=== PATIENT | male | born 2000 | race African-American/Black ===

== ENCOUNTER 2021-06-01 14:12 | Emergency (ER) | payer OTHER, SELFPAY ==
[2021-06-01] VITALS (21 sets, daily range): BP systolic 110–151; BP diastolic 71–99; PULSE 63–92; RESP 14–20; TEMP 36.6–36.7; O2SAT 98–100
--- NOTE | ~2021-06-01 | XR_ITS ---
EXAMINATION: XR chest 2V DATE: 06/01/2021 18:05 INDICATION: Weakness TECHNIQUE: PA and lateral views of the chest are obtained. COMPARISON: None available FINDINGS: The lungs are free of acute opacities. There is no pleural effusion or pneumothorax. The ca rdiomediastinal silhouette is normal. The visualized bones and soft tissues are unremarkable. IMPRESSION: 1. No acute cardiopulmonary abnormality. Reviewed, dictated and finalized at location F. RY CUTTER FEEDER
--- NOTE | ~2021-06-01 | CT_ITS ---
EXAMINATION: CT brain wo con INDICATION: Headache COMPARISON: None TECHNIQUE: Standard unenhanced head CT. The dose-length product (DLP) was 605.33 mGy-cm. The mA was a djusted according to patient size. Iterative reconstruction technique was employed. FINDINGS: There is no intracranial hemorrhage, acute infarction, or abnormal mass lesion. The ventric les are normal. There is no abnormal mass effect or midline shift. The winslow-white matter differentiat ion is normal. The basal cisterns are patent. The orbits are normal. The paranasal sinuses, mastoids and calvarium are normal. IMPRESSION: 1. No acute intracranial abnormality. Reviewed, dictated and finalized at location F. TRIC METER REPAIRER APPRENTICE
--- NOTE | 2021-06-01 17:37 | ECG_ITS ---
Measurements Intervals [place] Rate: 77 P: 39 OR: 155 QRS: 42 QRSD: 106 T: 8 QT: 349 QTc: 396 Interpretive Statements SINUS RHYTHM WITH SINUS ARRHYTHMIA BASELINE ARTIFACT- I, II, AVR NORMAL ECG Electronically Signed On 06-01-2021 21:14:39 PACKAGE DYER by Figueroa High D.O.
--- NOTE | 2021-06-01 17:50 | ED.GENADULT ---
HPI - General Adult General Chief complaint: Unspecified Stated complaint: L arm pain, resolved R eye blurred vision, nausea Time Seen by Provider: 06/01/21 17:23 Source: patient Mode of arrival: ambulatory Limitations: no limitations History of Present Illness HPI narrative: This is a 20 year old male who presents for evaluation of multiple symptoms. He states he woke up with left eye pain and left temporal throbbing this morning at 10 am. He also reports associated nausea and blurred right vision. He denies focal numbness, tingling, or weakness. He reports generalized weakness and body aches. He denies cough, chest pain or shortness of breath. He denies similar headache in the past. He reports his vision is back to normal and his headache has resolved. He did not take anything for his symptoms. Related Data Allergies Allergy/AdvReac Type Severity Reaction Status Date / Time No Known Allergies Allergy Unverified 08/23/18 18:38 Review of Systems Review of Systems: All systems reviewed & are unremarkable except as noted in HPI and below PMFSH Past Medical History Medical History (Updated 06/01/21 @ 19:24 by Yana Timmons MD) Patient denies medical problems Surgical History Surgical History (Updated 06/01/21 @ 18:35 by Yana Timmons MD) No pertinent past surgical history Social History Social History (Updated 06/01/21 @ 18:35 by Yana Timmons MD) Smoking status: Never smoker Alcohol intake: never Substance use: never Exam Narrative: GENERAL: Well-appearing, well-nourished, and in no acute distress. HEAD: Normocephalic, atraumatic EYES: PERRLA and EOMI, conjunctiva clear without discharge EARS: TM's clear bilaterally without erythema or dullness NOSE: Nares clear, no rhinorrhea or epistaxis THROAT:Mucous membranes moist, Oropharynx normal without erythema, exudate, peritonsillar swelling or fluctuance NECK: Supple, without lymphadenopathy or mass RESPIRATORY: No respiratory distress, Airway patent, Respirations non-labored, Clear to auscultation without rales, rhonchi or wheeze HEART: Regular rate and rhythm. No murmur heard. Normal peripheral pulses. ABDOMEN: Soft, nontender, nondistended, normal active bowel sounds. No masses. No rebound or guarding, No organomegaly. EXTREMITIES: No edema, normal strength with full range of motion. SKIN: Warm, dry, normal color without rash NEURO: Alert and oriented x3. CN 2-12 grossly intact. No focal deficits. PSYCH: Normal mood and affect. Eyes: Conjunctivae: conjunctivae normal Sclera: sclerae normal Pupils: Equal, round and reactive pupils present EOM: EOMs intact bilaterally Direct Ophthalmoscopy: normal light reflex and no papilledema Other: right eye intraocular pressure 14, left eye 17 Course Reevaluation(s) Reevaluation #1: PAtient's symptoms have resolved. He has not complaints. I have discussed evaluation with patient and his mother. This may have been migraine. He is also under investigation for covid. Date: 06/01/21 Time: 19:21 Vital Signs Vital signs: Vital Signs Temperature 97.8 F 06/01/21 14:32 Pulse Rate 63 06/01/21 14:32 Respiratory Rate 14 06/01/21 14:32 Blood Pressure 146/90 H 06/01/21 14:32 Pulse Oximetry 98 06/01/21 14:32 Temperature 98.1 F 06/01/21 17:08 Pulse Rate 92 06/01/21 19:46 Respiratory Rate 15 06/01/21 19:46 Blood Pressure 135/83 06/01/21 19:46 Pulse Oximetry 99 06/01/21 19:46 Medical Decision Making Vital Signs Vital Signs: Vital Signs Temperature 97.8 F 06/01/21 14:32 Pulse Rate 63 06/01/21 14:32 Respiratory Rate 14 06/01/21 14:32 Blood Pressure 146/90 H 06/01/21 14:32 Pulse Oximetry 98 06/01/21 14:32 Temperature 98.1 F 06/01/21 17:08 Pulse Rate 92 06/01/21 19:46 Respiratory Rate 15 06/01/21 19:46 Blood Pressure 135/83 06/01/21 19:46 Pulse Oximetry 99 06/01/21 19:46 Lab Data Lab results reviewed
[2021-06-01 18:00] LABS: Basophils Absolute Auto 0.1 K/mm3 (0.0-0.1); Basophils Percent Auto 0.5 % (0.2-1.2); Eosinophils Percent Auto 0.1 % (0-4.4); Hematocrit 44.5 % (42.0-52.0); Hemoglobin 15.4 g/dL (14.0-18.0); Immature Granulocyte Absolute 0.05 K/mm3 (0.00-0.031); Immature Granulocyte Percent A 0.3 % (0-0.5); Lymphocytes Absolute Auto 0.96 K/mm3 (0.9-3.2); Lymphocytes Percent Auto 6.5 % (18.3-44.2); Mean Corpuscular HGB Conc 34.6 g/dl (32-36); Mean Corpuscular Hemoglobin 29.2 pg (26-34); Mean Corpuscular Volume 84.3 fl (80-100); Mean Platelet Volume 10.4 fl (7.4-10.4); Monocytes Absolute Auto 0.3 K/mm3 (0.1-0.6); Monocytes Percent Auto 2.2 % (2.6-8.5); Neutrophils Absolute Auto 13.3 K/mm3 (1.3-6.7); Neutrophils Percent Auto 90.4 % (45.5-73.1); Platelet Count Result 250 k/mm3 (150-375); Red Blood Count 5.28 M/mm3 (4.6-6.20); Red Cell Distribution Width 12.7 % (11.5-14.5); White Blood Count 14.7 K/mm3 (4.5-10.0)
[2021-06-01 18:11] LABS: INR 1.1; Prothrombin Time 13.7 Seconds (11.1-14.7)
[2021-06-01 18:15] LABS: Alanine Aminotransferase 22 U/L (4-50); Albumin Level 4.7 g/dL (3.5-5.1); Alkaline Phosphatase 76 U/L (38-126); Anion Gap 7 mmol/L (8-16); Aspartate Amino Transferase 30 U/L (17-59); Bilirubin,Total 0.9 mg/dL (0.2-1.3); Blood Urea Nitrogen 12 mg/dL (9-20); Calcium 9.6 mg/dL (8.4-10.2); Carbon Dioxide 25 mmol/L (22-30); Chloride 104 mmol/L (98-107); Estimated CRCL calculation 136 ml/min; Estimated Glomerular Filt Rate > 60; Glucose 101 mg/dL (65-110); Potassium 4.4 mmol/L (3.4-5.0); Sodium 136 mmol/L (137-145)
[2021-06-01] MEDS: ONDANSETRON INJ 4 MG/2 ML VIAL IV PUSH (18:28)
[2021-06-01] MEDS: SODIUM CHLORIDE 0.9% IV 1,000 ML 999 ML IV CONT (18:29)
[2021-06-01 18:42] LABS: Add Urine Microscopic? NO; Appearance Urine Clear (Clear); Bilirubin Urine Negative (Negative); Blood Urine Negative (Negative); Color Urine Yellow (Yellow); Glucose Urine UA Negative (Negative); Ketones Urine Negative (Negative); Leukocyte Esterase Ur Negative LEU/UL (Negative); Nitrate Urine Negative (Negative); Protein Urine Negative (Negative); Specific Grav Ur 1.014 (1.001-1.035); Urobilinogen Urine Negative mg/dL (<2.0)
[2021-06-01 18:49] LABS: Amphetamine Screen Urine Negative (Negative); Barbiturate Screen Urine Negative (Negative); Benzodiazepines Screen Urine Negative (Negative); Cannabinoid Screen Urine Negative (Negative); Cocaine Screen Urine Negative (Negative); Methadone Screen Urine Negative (Negative); Opiate Screen Urine Negative (Negative); Phencyclidine Screen Urine Negative (Negative)
[2021-06-01 19:49] LABS: SARS-CoV-2 RNA PCR Negative
== END 2021-06-01 19:54 | disposition home or self-care (01) ==
PROVIDERS: Emergency Provider General Practice; PCP Family Medicine
DX: R51.9 Headache, unspecified (principal); Z20.822 Contact with and (suspected) exposure to COVID-19
CPT/HCPCS: 36415; 70450; 71046; 80053; 80307; 81003; 85025; 85610; 85730; 93005; 96361; 96374; 99284; C9803; J2405; J7030; U0003; U0005

== ENCOUNTER 2022-09-27 21:26 | Emergency (ER) | payer OTHER, SELFPAY ==
--- NOTE | ~2022-09-27 | XR_ITS ---
EXAM: XR ankle RT min 3V DATE: 09/27/2022 21:47 HISTORY: injury, pain, swelling to lat ankle . COMPARISON: 08/23/2018. FINDINGS: Normal mineralization. No fracture or dislocation. No lytic or blastic lesion. Joint space s are maintained. Prominent os trigonum. No erosion or periosteal change. Soft tissues within normal limits. IMPRESSION: No acute osseous finding in the right ankle. Reviewed, dictated and finalized at location K.
[2022-09-27 21:29] VITALS: BP 138/78; PULSE 94; RESP 18; TEMP 36.7; O2SAT 98
--- NOTE | 2022-09-27 22:42 | ED.GENADULT ---
HPI - General Adult General Chief complaint: Extremity Injury, Lower Stated complaint: Right ankle injury History of Present Illness HPI narrative: 21-year-old male presented to the emergency department for evaluation of right ankle pain. Patient was playing basketball this evening when he landed and rolled his right ankle. Patient denies any other pain or injury. Patient does report pain of the right lateral ankle with weightbearing Related Data Allergies Allergy/AdvReac Type Severity Reaction Status Date / Time No Known Allergies Allergy Unverified 08/23/18 18:38 Review of Systems Review of Systems: All systems reviewed & are unremarkable except as noted in HPI and below PMFSH Past Medical History Medical History (Updated 09/28/22 @ 00:01 by Ravi Baez) Patient denies medical problems Surgical History Surgical History (Updated 06/01/21 @ 18:35 by Yana Timmons MD) No pertinent past surgical history Social History Social History (Updated 06/01/21 @ 18:35 by Yana Timmons MD) Smoking status: Never smoker Alcohol intake: never Substance use: never Exam Narrative: APPEARANCE: Well appearing, no pain, no distress, well-nourished. HEAD: normocephalic, atraumatic. EYES: PERRLA/EOMI, conjunctivae clear. NOSE: Normal no drainage NECK: Supple. No adenopathy, no masses. RESPIRATORY: Airway patent, respirations nonlabored. Clear to auscultation bilaterally, no rales, rhonchi, wheezing. CARDIOVASCULAR: Regular rate and rhythm without murmurs rubs or gallops. ABDOMINAL: Soft, nontender, nondistended, normal bowel sounds MUSCULOSKELETAL: No tenderness to proximal tib-fib right leg, tenderness and swelling to lateral malleolus, dorsalis pedis pulses intact and no tenderness of right foot. NEURO: Alert. Cranial nerves II through XII intact. Grossly intact SKIN: Warm, dry. Normal Color Course Course Emergency Course: 21-year-old male presented the ED for evaluation of right ankle pain. X-rays were negative for acute fracture dislocation. Clinically patient appears to have a sprained ankle. Patient was provided Fred wrap and crutches. Patient evaluated the results of the work-up including the x-ray. All question concerns were addressed. Vital Signs Vital signs: Vital Signs Temperature 98.0 F 09/27/22 21:29 Pulse Rate 94 09/27/22 21:29 Respiratory Rate 18 09/27/22 21:29 Blood Pressure 138/78 09/27/22 21:29 Pulse Oximetry 98 09/27/22 21:29 Oxygen Delivery Room Air 09/27/22 21:29 Temperature 98.0 F 09/27/22 21:29 Pulse Rate 94 09/27/22 21:29 Respiratory Rate 18 09/27/22 21:29 Blood Pressure 138/78 09/27/22 21:29 Pulse Oximetry 98 09/27/22 21:29 Oxygen Delivery Room Air 09/27/22 21:29 Medical Decision Making Differential Diagnosis Differential Diagnosis: Ankle fracture, ankle sprain, ankle contusion Vital Signs Vital Signs: Vital Signs Temperature 98.0 F 09/27/22 21:29 Pulse Rate 94 09/27/22 21:29 Respiratory Rate 18 09/27/22 21:29 Blood Pressure 138/78 09/27/22 21:29 Pulse Oximetry 98 09/27/22 21:29 Oxygen Delivery Room Air 09/27/22 21:29 Temperature 98.0 F 09/27/22 21:29 Pulse Rate 94 09/27/22 21:29 Respiratory Rate 18 09/27/22 21:29 Blood Pressure 138/78 09/27/22 21:29 Pulse Oximetry 98 09/27/22 21:29 Oxygen Delivery Room Air 09/27/22 21:29 Discharge Plan Discharge Clinical Impression: Ankle injury Patient Disposition: Home, Self-Care Condition: Stable Instructions: Antibiotic Form, Ankle Sprain (ED), Crutch Instructions (ED), Ice Pack Application (ED) Additional Instructions: Fred wrap for support, crutches for limited weightbearing for the next 3 days. Naproxen scheduled for the next few days. Have close follow-up with your primary care physician. If you have any worsening symptoms then please call or return to the emergency room. Prescriptions: New
[2022-09-27] MEDS: NAPROXEN 500 MG TABLET PO (22:50)
[2022-09-27] MEDS: CYCLOBENZAPRINE HCL 10 MG TABLET PO (22:50)
== END 2022-09-27 23:00 | disposition home or self-care (01) ==
PROVIDERS: Emergency Provider Emergency Medicine
DX: S99.911A Unspecified injury of right ankle, initial encounter (principal); X50.9XXA Other and unspecified overexertion or strenuous movements or postures, initial encounter; Y93.67 Activity, basketball
CPT/HCPCS: 73610; 99283; A9270

== ENCOUNTER 2023-07-12 16:22 | Emergency (ER) | payer OTHER, SELFPAY ==
[2023-07-12 16:34] VITALS: BP 133/85; PULSE 66; RESP 16; TEMP 37; O2SAT 100
--- NOTE | 2023-07-12 16:39 | ED.WOUNDLAC ---
HPI - Wound/Laceration General Chief Complaint: Wound/Laceration Stated Complaint: lac Time Seen by Provider: 07/12/23 16:39 Source: patient Mode of arrival: ambulatory Limitations: no limitations History of Present Illness HPI narrative: Manish is a 22-year-old male patient presenting to the clinic today with complaints of a left hand laceration. He reports he was trying to open up a can and was using a fork when the can cut his left palm. His tetanus shot is not up-to-date. Bleeding is controlled. Related Data Allergies Allergy/AdvReac Type Severity Reaction Status Date / Time No Known Allergies Allergy Verified 07/12/23 16:37 Review of Systems Review of Systems: Pertinent positives per HPI. Patient denies any fever, chills, rash, headache, visual changes, dizziness, cough, runny nose, sore throat, shortness of breath, chest pain, palpitations, nausea, vomiting, diarrhea, constipation, abdominal pain, or any urinary issues. PMFSH Past Medical History Medical History Patient denies medical problems Surgical History Surgical History No pertinent past surgical history Social History Social History Smoking status: Never smoker Alcohol intake: never Substance use: never Comments At the time of my signature, I reviewed and agree with the nursing past medical, surgical, social, and family history. There is no relevant family history pertinent to the patient complaint. Exam Narrative: General: Well-developed, well nourished, in no apparent distress Head: Normocephalic, atraumatic. Cardio: Regular rate and rhythm, s1 and s2 normal, no murmur appreciated. Resp: Clear to auscultation bilaterally, no rhonchi, rales, wheezing or rubs. Integumentary: [place], warm, and dry, 1.5 cm gaped laceration to the left palm/webbing in between the thumb and index finger Course Course Emergency Course: Portions of this record may have been created with voice recognition software. Vital Signs Vital signs: Vital Signs Temperature 37.0 C 07/12/23 16:34 Pulse Rate 66 07/12/23 16:34 Respiratory Rate 16 07/12/23 16:34 Blood Pressure 133/85 07/12/23 16:34 Pulse Oximetry 100 07/12/23 16:34 Oxygen Delivery Room Air 07/12/23 16:34 Temperature 37.0 C 07/12/23 16:34 Pulse Rate 66 07/12/23 16:34 Respiratory Rate 16 07/12/23 16:34 Blood Pressure 133/85 07/12/23 16:34 Pulse Oximetry 100 07/12/23 16:34 Oxygen Delivery Room Air 07/12/23 16:34 Vital signs reviewed Procedures Laceration Laceration 1: Date: 07/12/23 Site: hand Size (cm): 1.5 Description: linear Depth: simple, single layer Local Anesthetic: lidocaine 1% and with epi Amount of anesthesia used (mL): 2 Pre-repair: wound explored, irrigated and irrigated extensively ====== Skin Level ====== Skin layer closed with: nylon Size (cm): 4-0 Number of sutures: 5 Technique: simple, interrupted ====== Subcutaneous Layer ====== ====== Muscle Layer ====== ====== Tendon Layer ====== Dressing: Verbal consent obtained for laceration repair. Risk and benefits explained and patient voiced understanding. Area was cleansed with ChloraPrep and a 25 gauge needle was then used to instill (2) ml of 1% lidocaine with epi into the wound edges. Area was prepped and draped using sterile technique. A 4-0 suture on a p needle was used to place (5) interrupted sutures bringing the wound edges together- well approximated. Patient tolerated procedure well. Sterile dressing applied. MDM - Wound/Laceration MDM Narrative Medical decision making narrative: At the time of visit patient is resting comfortably on the exam table. Patient appears to be nontoxic.
[2023-07-12] MEDS: TETANUS,DIPHTHERIA,AC PERTUSSIS ADULT (0.5 ML) BOOSTRIX IM (17:17)
[2023-07-12] MEDS: LIDO 1%/EPINEPHRINE 1:100,000 20 ML VIAL 10 ML INFILTRATE (17:18)
== END 2023-07-12 17:23 | disposition home or self-care (01) ==
LOC: ANHED 17:10
PROVIDERS: Emergency Provider Nurse Practitioner Family; PCP Family Medicine Sports Medicine
DX: S61.412A Laceration without foreign body of left hand, initial encounter (principal); W26.8XXA Contact with other sharp object(s), not elsewhere classified, initial encounter; Z23 Encounter for immunization
CPT/HCPCS: 12001; 90471; 90715; 99282

== ENCOUNTER 2024-07-02 10:04 | Emergency (ER) | payer OTHER, SELFPAY ==
[2024-07-02 10:13] VITALS: BP 136/63; PULSE 63; RESP 15; TEMP 36.4; O2SAT 100
--- OUTSIDE RECORDS SUMMARY | 2024-07-02 11:30 | XMS_ITS | Clinical Summary ---
Author Organization [facility] Address [address] [place] [address] Phone Care Team Providers Care Vp Delivery Name Role Phone Liya Salinas MD Primary Care Provider No, Physician Unavailable Allergies No known active allergies Medications citalopram hydrobromide (CITALOPRAM ORAL) Take 20 mg by mouth daily Active albuterol HFA (PROVENTIL HFA,VENTOLIN HFA,PROAIR HFA) 90 mcg/actuation inhalerIndicatio ns:Exercise-beth michelle asthma Inhale 2 puffs every 6 (six) hours as needed for wheezing or shortness of breath 1 each 4 3 Active Additional Information Patient not taking.Reported on 09/28/2023 minoxidiL 5 % solution Apply topically Acti ve Active Problems Problem Noted Date Diagnosed Date Bipolar disorder, current episode mixed, moderat e 04/19/2022 JETT (generalized anxiety disorder) 04/19/2022 PTSD (post-traumatic stress disorder) 04/19/2022 Encounters Date Type Department Care Team Description 04/08/2024 4:45 PM FOAM RUBBER FABRICATOR Office Visit [facility] at [address] [id number] Feli Hyatt PA Influenza A (Primary Dx); Non-recurrent acute suppurative otitis media of both ears without spontaneous rupture of tympanic membranes from Last 3 Months Immunizations Immunization Administration Dates Next Due DTaP 11/26/2004, 2,11/28/2000,04/28/2000,0 1999 Hep B, Adolescent or Pediatric 03/13/2001,2000 HiB 11/22/2001,04/28/2000,1999 IPV 11/26/2004,11/28/2000,04/28/2000 ,1999 Influenza, Unspecified 01/09/2023(Deferred: Jessie ent Refused) MMR 11/26/2004,03/13/2001 Meningococcal MCV4P (Menactra) 06/20/2017 Tdap 07/12/2023,06/20/2017 Varicella 11/26/2002 Surgical History Surgery Date Site/Laterality Comments NO PAST SURGERIES Medical History Medical History Date Comments Major depression Adhd JETT (generalized anxiety disorder) Manic depression (HCC) Family History Medical History Relation Name Comments Schizophrenia Father's Brother 1 Bipolar disorder Father's Brother 2 Anxiety disorder Mother Depression Mother Diabetes Mother Hyperlipidemia Mother Relation Name Status Comments Father's Brother 1 Alive Father's Brother 2 Alive Mother Social History Tobacco Use Types Packs/Day Years Used Date Smoking Tobacco: Never Smokeless Tobacco: Never Tobacco Cessation:Counseling Given: Not Answered PHQ-2 Answer Date Recorded PHQ-2 Total Score (If total score is 3 or more points, staff should administer the PHQ-9) 3 09/12/2023 PHQ-9 Answer Date Recorded PHQ-9 Total Score 13 09/12/2023 Sex and Gender Information Value Date Recorded Sex Assigned at Not on file Legal Sex Male 8:26 AM CDT Gender Identity Not on file Sexual Orientation Not on file Obstetrics History Last Filed Vital Signs Vital Sign Reading Time Taken Comments Blood Pressure 114/76 04/08/2024 4:43 PM FOAM RUBBER FABRICATOR Pulse 78 04/08/2024 4:43 PM FOAM RUBBER FABRICATOR Temperature 37.5 C (99.5 F) 04/08/2024 4:43 PM FOAM RUBBER FABRICATOR Respiratory Rate 20 04/08/2024 4:43 PM FOAM RUBBER FABRICATOR Oxygen Saturation 98% 04/08/2024 4:43 PM FOAM RUBBER FABRICATOR Inhaled Oxygen Concentration - - Weight 93.4 kg (206 lb) 04/08/2024 4:43 PM FOAM RUBBER FABRICATOR Height 175.3 cm (5' 9 ) 09/28/2023 3:16 PM CDT Body Mass Index 30.42 09/28/2023 3:16 PM CDT Plan of Treatment Health Maintenance Due Date Last Done Comments Hepatitis C Screening 1999 Varicella Vaccines (2 of 2 - 2-dose childhood series) 2003 11/26/2002 HPV Vaccines (1 - Male 3-dose series) 10/06/2014 Influenza Vaccine (#1) 2023 Depression Screening 09/11/2024 09/12/2023, 02/04/2023, 02/04/2023, Additional history exists Regular Well Visit/Exam 18-64 09/11/2024 09/12/2023 DTaP/Tdap/Td Vaccine (8 - Td or Tdap) 07/11/2033 07/12/2023, 06/20/2017, 11/26/2004, Additional history exists Hepatitis B Screening Completed 03/13/2001, 001 Pneumococcal vaccine <65 Aged Out No longer eligible based on patient's age to complete this topic Procedures Procedure Name Priority Date/Time Associated Diagnosis Comments POCT RAPID STREP Routine 04/08/2024 4:51 PM FOAM RUBBER FABRICATOR Influenza A POC INFLUENZA A/B, COVID-19 ANTIGEN Routine 04/08/2024 4:51 PM FOAM RUBBER FABRICATOR Influenza A from Last 3 Months Results * (ABNORMAL) POC Influenza A/B, COVID-19 antigen (04/08/2024 4:51 PM FOAM RUBBER FABRICATOR) Influenza A Ag, POC Positive(A) Negative [facility] Influenza B Ag, POC Negative Negative [facility] COVID-19 Ag POC Presumptive Negative Presumptive Negative, Invalid [facility] Nasal 04/08/2024 4:51 PM FOAM RUBBER FABRICATOR us Feli STANTON POINT OF CARE TEST ORDER DISHA Final Result [facility] [address] [place], [place] [id number] * POCT rapid strep A (04/08/2024 4:51 PM FOAM RUBBER FABRICATOR) Rapid Strep A, POC Negative Negative Swab 04/08/2024 4:51 PM FOAM RUBBER FABRICATOR Feli STANT[place] POINT OF CARE TEST ORDER DISHA Final Result from Last 3 Months Insurance [facility] Care Teams Vp Delivery Relationship Specialty Start Date End Date Liya Salinas MD PCP - General Family Practice 04/19/22 No, Physician 03/15/22
--- OUTSIDE RECORDS SUMMARY | 2024-07-02 11:30 | XMS_ITS | Referral Summary ---
Author Organization [facility] Address [address] [address] Phone Care Team Providers Care Lumber Bearer Name Role Phone Liya Salinas MD Primary Care Provider No, Physician Unavailable Encounters Date Type Department Care Team Description 04/08/2024 4:45 PM SIGNALS INTELLIGENCE ANALYSIS MANAGER Office Visit [facility] at [address] [phone] Feli Hyatt PA Influenza A (Primary Dx); Non-recurrent acute suppurative otitis media of both ears without spontaneous rupture of tympanic membranes from Last 3 Months Allergies No known active allergies Medications citalopram hydrobromide (CITALOPRAM ORAL) Take 20 mg by mouth daily Active albuterol HFA (PROVENTIL HFA,VENTOLIN HFA,PROAIR HFA) 90 mcg/actuation inhalerIndicatio ns:Exercise-beth michelle asthma Inhale 2 puffs every 6 (six) hours as needed for wheezing or shortness of breath 1 each 4 Active Additional Information Patient not taking.Reported on 09/28/2023 minoxidiL 5 % solution Apply topically Acti ve Active Problems Problem Noted Date Diagnosed Date Bipolar disorder, current episode mixed, moderat e 04/19/2022 JETT (generalized anxiety disorder) 04/19/2022 PTSD (post-traumatic stress disorder) 04/19/2022 Immunizations Immunization Administration Dates Next Due DTaP 11/26/2004, 2,11/28/2000,04/28/2000,0 1999 Hep B, Adolescent or Pediatric 03/13/2001,2000 HiB 11/22/2001,04/28/2000,1999 IPV 11/26/2004,11/28/2000,04/28/2000 ,1999 Influenza, Unspecified 01/09/2023(Deferred: Jessie ent Refused) MMR 11/26/2004,03/13/2001 Meningococcal MCV4P (Menactra) 06/20/2017 Tdap 07/12/2023,06/20/2017 Varicella 11/26/2002 Social History Tobacco Use Types Packs/Day Years [...] on file Sexual Orientation Not on file Last Filed Vital Signs Vital Sign Reading Time Taken Comments Blood Pressure 114/76 04/08/2024 4:43 PM SIGNALS INTELLIGENCE ANALYSIS MANAGER Pulse 78 04/08/2024 4:43 PM SIGNALS INTELLIGENCE ANALYSIS MANAGER Temperature 37.5 C (99.5 F) 04/08/2024 4:43 PM SIGNALS INTELLIGENCE ANALYSIS MANAGER Respiratory Rate 20 04/08/2024 4:43 PM SIGNALS INTELLIGENCE ANALYSIS MANAGER Oxygen Saturation 98% 04/08/2024 4:43 PM SIGNALS INTELLIGENCE ANALYSIS MANAGER Inhaled Oxygen Concentration - - Weight 93.4 kg (206 lb) 04/08/2024 4:43 PM SIGNALS INTELLIGENCE ANALYSIS MANAGER Height 175.3 cm (5' 9 ) 09/28/2023 3:16 PM CDT Body Mass Index 30.42 09/28/2023 3:16 PM CDT Plan of Treatment Not on file Procedures Procedure Name Priority Date/Time Associated Diagnosis Comments POCT RAPID STREP Routine 04/08/2024 4:51 PM SIGNALS INTELLIGENCE ANALYSIS MANAGER Influenza A POC INFLUENZA A/B, COVID-19 ANTIGEN Routine 04/08/2024 4:51 PM SIGNALS INTELLIGENCE ANALYSIS MANAGER Influenza A from Last 3 Months Results * (ABNORMAL) POC Influenza A/B, COVID-19 antigen (04/08/2024 4:51 PM SIGNALS INTELLIGENCE ANALYSIS MANAGER) Influenza A Ag, POC Positive(A) Negative [facility] Influenza B Ag, POC Negative Negative [facility] COVID-19 Ag POC Presumptive Negative Presumptive Negative, Invalid [facility] Nasal 04/08/2024 4:51 PM SIGNALS INTELLIGENCE ANALYSIS MANAGER Feli STANTON POINT OF CARE TEST ORDER DISHA Final Result Performing Organization Address City/State/[facility] Co de Phone Number [facility] [address] [place] [address] * POCT rapid strep A (04/08/2024 4:51 PM SIGNALS INTELLIGENCE ANALYSIS MANAGER) Rapid Strep A, POC Negative Negative Swab 04/08/2024 4:51 PM SIGNALS INTELLIGENCE ANALYSIS MANAGER Feli STANT[place] POINT OF CARE TEST ORDER DISHA Final Result from Last 3 Months Insurance [facility] Care Teams Lumber Bearer Relationship Specialty Start Date End Date Liya Salinas MD PCP - General Family Practice 04/19/22 No, Physician 03/15/22
--- NOTE | 2024-07-02 13:03 | ED_ITS ---
HPI - General Adult General Chief complaint: Back Pain/Injury Stated complaint: back pain after stretching Time Seen by Provider: 07/02/24 12:02 History of Present Illness HPI narrative: 23-year-old male presenting to the emergency department for evaluation for mid back pain. Patient states he was riding his car when he was doing some twisting stretching than some left lateral stretching when he felt a pop in his back. Patient states that he is having right paraspinal back pain in the midthoracic region. Patient denies any associated numbness or weakness. Patient denies any traumatic injury. Patient denies any change in bowel or bladder habits. Patient states he does do heavy lifting for his work and does also do martial arts sewed does report increased possibility of having an injury but denies any specific injury. Related Data Allergies Allergy/AdvReac Type Severity Reaction Status Date / Time No Known Allergies Allergy Verified 07/02/24 10:13 Review of Systems Review of Systems: All systems reviewed & are unremarkable except as noted in HPI and below PMFSH Past Medical History Medical History Patient denies medical problems Surgical History Surgical History No pertinent past surgical history Social History Social History Smoking status: Never smoker Alcohol intake: never Substance use: never Exam Narrative: APPEARANCE: Well appearing, no pain, no distress, well-nourished. HEAD: normocephalic, atraumatic. EYES: PERRLA/EOMI, conjunctivae clear. NOSE: Normal no drainage EARS:TMS clear with good light reflex. THROAT: Pharynx clear, no exudate. NECK: Supple. No adenopathy, no masses. RESPIRATORY: Airway patent, respirations nonlabored. Clear to auscultation bilaterally, no rales, rhonchi, wheezing. CARDIOVASCULAR: Regular rate and rhythm without murmurs rubs or gallops. ABDOMINAL: Soft, nontender, nondistended, normal bowel sounds MUSCULOSKELETAL: Tenderness of the right paraspinal muscles and the midthoracic region. NEURO: Alert. Cranial nerves II through XII intact. Good gait. Good coordination SKIN: Warm, dry. Normal Color Course Vital Signs Vital signs: Vital Signs Temperature 97.5 F L 07/02/24 10:13 Pulse Rate 63 07/02/24 10:13 Respiratory Rate 15 07/02/24 10:13 Blood Pressure 136/63 07/02/24 10:13 Pulse Oximetry 100 07/02/24 10:13 Oxygen Delivery Room Air 07/02/24 10:13 Temperature 97.5 F L 07/02/24 10:13 Pulse Rate 63 07/02/24 10:13 Respiratory Rate 15 07/02/24 10:13 Blood Pressure 136/63 07/02/24 10:13 Pulse Oximetry 100 07/02/24 10:13 Oxygen Delivery Room Air 07/02/24 10:13 Medical Decision Making MDM Narrative Medical decision making narrative: 23 old male presents emergency department for evaluation for right paraspinal back pain. Patient was provided Toradol and cyclobenzaprine for pain control. Patient was offered x-rays due to feeling a traumatic pop in his back. Patient initially agreed to have the x-ray but ultimately declined. Patient was discharged home with medications for pain control. Patient was encouraged close follow-up with primary care physician. Differential Diagnosis Differential Diagnosis: Paraspinal muscular back spasm. Thoracic spine fracture Vital Signs Vital Signs: Vital Signs Temperature 97.5 F L 07/02/24 10:13 Pulse Rate 63 07/02/24 10:13 Respiratory Rate 15 07/02/24 10:13 Blood Pressure 136/63 07/02/24 10:13 Pulse Oximetry 100 07/02/24 10:13 Oxygen Delivery Room Air 07/02/24 10:13 Temperature 97.5 F L 07/02/24 10:13 Pulse Rate 63 07/02/24 10:13 Respiratory Rate 15 07/02/24 10:13 Blood Pressure 136/63 07/02/24 10:13 Pulse Oximetry 100 07/02/24 10:13 Oxygen Delivery Room Air 07/02/24 10:13 Discharge Plan Discharge Clinical Impression: Strain of thoracic back region Patient Disposition: Home, Self-Care Condition: Stable Instructions: Antibiotic Form, Thoracic Back Strain (ED) Additional Instructions: You declined imaging. Tylenol and ibuprofen for pain control. Cyclobenzaprine for muscle spasm. Gentle stretching as directed. If you have any worsening symptoms then please call or return to the emergency department. Patient Language: Portuguese Prescriptions: New cyclobenzaprine 10 mg tablet 10 mg PO BID PRN (Reason: muscle spasm) Qty: 14 0RF No Action ondansetron 4 mg tablet,disintegrating 4 mg PO Q6H PRN (Reason: nausea and vomiting) Qty: 10 0RF cyclobenzaprine 10 mg tablet 10 mg PO BID PRN (Reason: muscle spasm) Qty: 14 0RF Follow-up/Referrals: UNKNOWN,DOCTOR [Primary Care Provider] -
[2024-07-02] MEDS: CYCLOBENZAPRINE HCL 10 MG TABLET PO (13:18)
[2024-07-02] MEDS: KETOROLAC (*BKC) 60 MG/2 ML VIAL IM (13:20)
--- OUTSIDE RECORDS SUMMARY | 2024-07-02 14:03 | XMS_ITS | Clinical Summary ---
Author Organization [facility] Address [address] [place] [address] Phone Care Team Providers Care Dock Operations Supervisor Name Role Phone Liya Salinas MD Primary [...] Department Care Team Description 04/08/2024 4:45 PM FRONT DESK AGENT Office Visit [facility] at [address] [id number] Feli Hyatt PA Influenza A [...] Comments Blood Pressure 114/76 04/08/2024 4:43 PM FRONT DESK AGENT Pulse 78 04/08/2024 4:43 PM FRONT DESK AGENT Temperature 37.5 C (99.5 F) 04/08/2024 4:43 PM FRONT DESK AGENT Respiratory Rate 20 04/08/2024 4:43 PM FRONT DESK AGENT Oxygen Saturation 98% 04/08/2024 4:43 PM FRONT DESK AGENT Inhaled Oxygen Concentration - - Weight 93.4 kg (206 lb) 04/08/2024 4:43 PM FRONT DESK AGENT Height 175.3 cm (5' 9 ) 09/28/2023 [...] POCT RAPID STREP Routine 04/08/2024 4:51 PM FRONT DESK AGENT Influenza A POC INFLUENZA A/B, COVID-19 ANTIGEN Routine 04/08/2024 4:51 PM FRONT DESK AGENT Influenza A from Last 3 Months Results * (ABNORMAL) POC Influenza A/B, COVID-19 antigen (04/08/2024 4:51 PM FRONT DESK AGENT) Influenza A Ag, POC Positive(A) Negative [facility] Influenza B Ag, POC Negative Negative [facility] COVID-19 Ag POC Presumptive Negative Presumptive Negative, Invalid [facility] Nasal 04/08/2024 4:51 PM FRONT DESK AGENT us Feli STANT[facility] POINT OF CARE TEST ORDER DISHA Final Result [facility] [address] [place], [place] [address] * POCT rapid strep A (04/08/2024 4:51 PM FRONT DESK AGENT) Rapid Strep A, POC Negative Negative Swab 04/08/2024 4:51 PM FRONT DESK AGENT Feli [place]ANT[place] POINT OF CARE TEST ORDER DISHA Final Result from Last 3 Months Insurance [facility] Care Teams Dock Operations Supervisor Relationship Specialty Start Date End Date Liya Salinas MD PCP - General Family Practice 04/19/22 No, Physician 03/15/22
--- OUTSIDE RECORDS SUMMARY | 2024-07-02 14:03 | XMS_ITS | Referral Summary ---
Author Organization [facility] Address [address] [address] Phone Care Team Providers Care Leaf Sorter Name Role Phone Liya Salinas MD Primary Care Provider No, Physician Unavailable Encounters Date Type Department Care Team Description 04/08/2024 4:45 PM SENIOR ORACLE DBA Office Visit [facility] at [address] [id number] Feli Hyatt PA Influenza A [...] Comments Blood Pressure 114/76 04/08/2024 4:43 PM SENIOR ORACLE DBA Pulse 78 04/08/2024 4:43 PM SENIOR ORACLE DBA Temperature 37.5 C (99.5 F) 04/08/2024 4:43 PM SENIOR ORACLE DBA Respiratory Rate 20 04/08/2024 4:43 PM SENIOR ORACLE DBA Oxygen Saturation 98% 04/08/2024 4:43 PM SENIOR ORACLE DBA Inhaled Oxygen Concentration - - Weight 93.4 kg (206 lb) 04/08/2024 4:43 PM SENIOR ORACLE DBA Height 175.3 cm (5' 9 ) 09/28/2023 3:16 PM CDT Body Mass Index 30.42 09/28/2023 3:16 PM CDT Plan of Treatment Not on file Procedures Procedure Name Priority Date/Time Associated Diagnosis Comments POCT RAPID STREP Routine 04/08/2024 4:51 PM SENIOR ORACLE DBA Influenza A POC INFLUENZA A/B, COVID-19 ANTIGEN Routine 04/08/2024 4:51 PM SENIOR ORACLE DBA Influenza A from Last 3 Months Results * (ABNORMAL) POC Influenza A/B, COVID-19 antigen (04/08/2024 4:51 PM SENIOR ORACLE DBA) Influenza A Ag, POC Positive(A) Negative [facility] Influenza B Ag, POC Negative Negative [facility] COVID-19 Ag POC Presumptive Negative Presumptive Negative, Invalid [facility] Nasal 04/08/2024 4:51 PM SENIOR ORACLE DBA Feli STANTON POINT OF CARE TEST ORDER DISHA Final Result Performing Organization Address City/State/[facility] Co de Phone Number [facility] [address] [place] [address] * POCT rapid strep A (04/08/2024 4:51 PM SENIOR ORACLE DBA) Rapid Strep A, POC Negative Negative Swab 04/08/2024 4:51 PM SENIOR ORACLE DBA Feli STANT[place] POINT OF CARE TEST ORDER DISHA Final Result from Last 3 Months Insurance [facility] Care Teams Leaf Sorter Relationship Specialty Start Date End Date Liya Salinas MD PCP - General Family Practice 04/19/22 No, Physician 03/15/22
== END 2024-07-02 13:58 | disposition home or self-care (01) ==
PROVIDERS: Emergency Provider Emergency Medicine
DX: S29.012A Strain of muscle and tendon of back wall of thorax, initial encounter (principal); X50.0XXA Overexertion from strenuous movement or load, initial encounter
CPT/HCPCS: 96372; 99283; A9270; J1885